=== PATIENT | female | born 1990 | race Caucasian/White ===

== ENCOUNTER 2017-04-15 06:51 | Inpatient (IN) | payer BC ==
[2017-04-14 10:19] LABS: ASCORBIC ACID (UR NOT ORDER) NEG (NEG); BILIRUBIN, URINE NEGATIVE (NEG); KETONE, URINE NEGATIVE (NEG); LEUKOCYTE ESTERASE(NOT OR MOD (NEG); WBC (NOT ORDERED) (RFLEX) 73 (0-5)
--- NOTE | ~2017-04-15 | OP ---
Record Of Operation [facility] [address] [place]. [address] NAME: LINDY BRINK : 89 STATUS : REG [facility] [place] PAT#: [id number] AGE: 26 ADM/REG DATE : 04/15/17 MR#: [id number] REPORT SERV DATE: 04/15/17 DICTATED BY: AMY RUSHING DATE: 04/15/17 REPORT STATUS : Draft TRANSCRIBED BY: MODL DATE: 04/15/17 DATE OF PROCEDURE: 04/15/2017 TITLE OF OPERATIONS: Cystourethroscopy, right retrograde pyelogram, right ureteroscopy with laser lithotripsy, and basket stone extraction. PREOPERATIVE DIAGNOSES: 1. Right renal stones. 2. Recurrent urinary tract infections. POSTOPERATIVE DIAGNOSES: 1. Right renal stones. 2. Recurrent urinary tract infections. INDICATIONS: Ms Brink is a 26-year-old female with recurrent UTIs. 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 Given these findings, she is taken to the operating room for treatment of her stones to hopefully fix her recurrent UTI problem. ANESTHESIA: General. COMPLICATIONS: None. IMPLANTS: None. SPECIMEN: Stones for analysis. NARRATIVE: The patient was brought to the operating room, identified by a wristband. General anesthesia was induced, and Levaquin was given for preoperative antibiotics. She was placed in the dorsal lithotomy position, prepped and draped in sterile fashion. A cystoscope was placed into her urethra and into her bladder. The bladder was inspected. There were no tumors or other abnormalities. The right ureteral orifice was identified, and cannulated with a Sensor wire. 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 A wire was placed up into the lower pole moiety, and ureteroscope was placed over the wire into the kidney. The kidney was inspected. There were several small stones in the lower pole of the kidney. Using 200 micron holmium laser fiber and 100 watt laser, the stones were fragmented into innumerable submillimeter pieces. There was one piece that was about 2 mm in size. It was grasped in NGage basket and removed from the kidney. The kidney was systematically inspected with upper and lower poles. There were no further stones. The ureter was not traumatized. Decision was made not to leave a stent. The patient was awoken from anesthesia, and transferred to the recovery room in stable condition. There were no complications. Record Of Operation [address] [place]. [address] NAME: LINDY BRINK : 89 STATUS : REG [facility] [place] PAT#: [id number] AGE: 26 ADM/REG DATE : 04/15/17 MR#: [id number] REPORT SERV DATE: 04/15/17 DICTATED BY: AMY RUSHING DATE: 04/15/17 REPORT STATUS : Draft TRANSCRIBED BY: CANDY DATE: 04/15/17 MIRNA/CANDY y Rushing MD / [id number] CC: MD Dorene Saab M.D.
[~2017-04-15 06:51] MED LIST: BIOTIN5 MG PO; COLON CLEANSE; GARCINIA CAMBOGIA; MULTI-VIT HP; TOPAMAX25 PO
[2017-04-15 13:46] LABS: BASOPHILS 0 %; EOSINOPHILS 0 %; HEMATOCRIT 39.1 % (36.0-48.0); HEMOGLOBIN 13.5 g/dL (12.0-16.0); IMMATURE GRANULOCYTES 0.3 %; IMMATURE GRANULOCYTES ABSOLUTE 0.02 10/3/uL (0.0-0.11); LYMPHOCYTES 2.4 %; LYMPHOCYTES ABSOLUTE 0.17 10/3/uL (0.67-4.30); MEAN CORPUS HGB CONC 34.5 g/dL (32.0-36.0); MEAN CORPUSCULAR HEMOGLOB 31.6 pg (26.0-34.0); MEAN CORPUSCULAR VOLUME 91.6 fL (80-100); MEAN PLATELET VOLUME 9.3 fL (9.2-13.0); MONOCYTES 1.3 %; MONOCYTES ABSOLUTE 0.09 10/3/uL (0.21-1.20); NEUTROPHILS ABSOLUTE 6.79 10/3/uL (2.02-8.40); RBC DISTRIBUTION WIDTH 13.2 % (12.0-16.0); RED CELL COUNT 4.27 10/6/uL (4.0-5.6); WHITE BLOOD CELLS 7.1 10/3/uL (4.5-10.5)
[2017-04-15 13:48] LABS: MANUAL DIFF NO %; PLATELET COUNT 140 10/3/uL (150-400)
[2017-04-15 13:58] LABS: BUN (BLOOD UREA NITROGEN) 10 MG/DL (6-23); CALCIUM, SERUM 8.5 MG/DL (8.5-10.4); CHLORIDE, SERUM 109 MMOL/L (96-112); CO2 (CARBON DIOXIDE) 28 MMOL/L (24-34); CREATININE 0.84 MG/DL (0.55-1.02); GFR AFRICAN AMERICAN 111 ML/MIN (>=60); GFR NON AFRICAN AMERICAN 96 ML/MIN (>=60); GLUCOSE, SERUM 101 MG/DL (60-99); POTASSIUM, SERUM 3.8 MMOL/L (3.5-5.3); SODIUM, SERUM 143 MMOL/L (135-148)
[2017-04-16 05:44] LABS: BASOPHILS 0.1 %; BASOPHILS ABSOLUTE 0.02 10/3/uL (0.0-0.16); EOSINOPHILS 0 %; HEMATOCRIT 36.4 % (36.0-48.0); HEMOGLOBIN 12.6 g/dL (12.0-16.0); IMMATURE GRANULOCYTES 0.6 %; LYMPHOCYTES 3.1 %; LYMPHOCYTES ABSOLUTE 0.54 10/3/uL (0.67-4.30); MEAN CORPUS HGB CONC 34.6 g/dL (32.0-36.0); MEAN CORPUSCULAR HEMOGLOB 31.8 pg (26.0-34.0); MEAN CORPUSCULAR VOLUME 91.9 fL (80-100); MEAN PLATELET VOLUME 9.5 fL (9.2-13.0); MONOCYTES 3.8 %; MONOCYTES ABSOLUTE 0.67 10/3/uL (0.21-1.20); NEUTROPHILS 92.4 %; NEUTROPHILS ABSOLUTE 16.08 10/3/uL (2.02-8.40); PLATELET COUNT 147 10/3/uL (150-400); RBC DISTRIBUTION WIDTH 13.3 % (12.0-16.0); RED CELL COUNT 3.96 10/6/uL (4.0-5.6)
[2017-04-16 05:45] LABS: MANUAL DIFF NO %; WHITE BLOOD CELLS 17.4 10/3/uL (4.5-10.5)
[2017-04-16 05:53] LABS: BUN (BLOOD UREA NITROGEN) 10 MG/DL (6-23); CHLORIDE, SERUM 106 MMOL/L (96-112); CO2 (CARBON DIOXIDE) 25 MMOL/L (24-34); CREATININE 0.76 MG/DL (0.55-1.02); GFR AFRICAN AMERICAN 125 ML/MIN (>=60); GFR NON AFRICAN AMERICAN 108 ML/MIN (>=60); POTASSIUM, SERUM 3.7 MMOL/L (3.5-5.3); SODIUM, SERUM 138 MMOL/L (135-148)
[2017-04-16 05:57] LABS: GLUCOSE, SERUM 123 MG/DL (60-99)
[2017-04-16 11:51] LABS: BASOPHILS 0.1 %; BASOPHILS ABSOLUTE 0.01 10/3/uL (0.0-0.16); EOSINOPHILS 0.1 %; EOSINOPHILS ABSOLUTE 0.01 10/3/uL (0.0-0.53); HEMATOCRIT 36.9 % (36.0-48.0); HEMOGLOBIN 12.2 g/dL (12.0-16.0); IMMATURE GRANULOCYTES 0.3 %; IMMATURE GRANULOCYTES ABSOLUTE 0.04 10/3/uL (0.0-0.11); LYMPHOCYTES 4.3 %; LYMPHOCYTES ABSOLUTE 0.59 10/3/uL (0.67-4.30); MANUAL DIFF NO %; MEAN CORPUS HGB CONC 33.1 g/dL (32.0-36.0); MEAN CORPUSCULAR HEMOGLOB 31.1 pg (26.0-34.0); MEAN CORPUSCULAR VOLUME 94.1 fL (80-100); MEAN PLATELET VOLUME 9.4 fL (9.2-13.0); MONOCYTES 5.2 %; MONOCYTES ABSOLUTE 0.71 10/3/uL (0.21-1.20); NEUTROPHILS ABSOLUTE 12.27 10/3/uL (2.02-8.40); PLATELET COUNT 112 10/3/uL (150-400); RBC DISTRIBUTION WIDTH 13.6 % (12.0-16.0); RED CELL COUNT 3.92 10/6/uL (4.0-5.6); WHITE BLOOD CELLS 13.6 10/3/uL (4.5-10.5)
[2017-04-17 05:46] LABS: BASOPHILS 0.1 %; BASOPHILS ABSOLUTE 0.01 10/3/uL (0.0-0.16); EOSINOPHILS 0.4 %; EOSINOPHILS ABSOLUTE 0.04 10/3/uL (0.0-0.53); HEMATOCRIT 34.3 % (36.0-48.0); HEMOGLOBIN 11.8 g/dL (12.0-16.0); IMMATURE GRANULOCYTES 0.2 %; IMMATURE GRANULOCYTES ABSOLUTE 0.02 10/3/uL (0.0-0.11); LYMPHOCYTES 11.6 %; LYMPHOCYTES ABSOLUTE 1.12 10/3/uL (0.67-4.30); MEAN CORPUS HGB CONC 34.4 g/dL (32.0-36.0); MEAN CORPUSCULAR HEMOGLOB 31.6 pg (26.0-34.0); MEAN CORPUSCULAR VOLUME 91.7 fL (80-100); MEAN PLATELET VOLUME 9.9 fL (9.2-13.0); MONOCYTES 7.4 %; MONOCYTES ABSOLUTE 0.71 10/3/uL (0.21-1.20); NEUTROPHILS 80.3 %; NEUTROPHILS ABSOLUTE 7.74 10/3/uL (2.02-8.40); PLATELET COUNT 134 10/3/uL (150-400); RBC DISTRIBUTION WIDTH 13.3 % (12.0-16.0); RED CELL COUNT 3.74 10/6/uL (4.0-5.6); WHITE BLOOD CELLS 9.6 10/3/uL (4.5-10.5)
[2017-04-17 05:52] LABS: MANUAL DIFF NO %
[2017-04-17 06:07] LABS: BUN (BLOOD UREA NITROGEN) 8 MG/DL (6-23); CALCIUM, SERUM 8.3 MG/DL (8.5-10.4); CHLORIDE, SERUM 110 MMOL/L (96-112); CO2 (CARBON DIOXIDE) 25 MMOL/L (24-34); CREATININE 0.67 MG/DL (0.55-1.02); GFR AFRICAN AMERICAN 141 ML/MIN (>=60); GFR NON AFRICAN AMERICAN 121 ML/MIN (>=60); GLUCOSE, SERUM 104 MG/DL (60-99); SODIUM, SERUM 140 MMOL/L (135-148)
[2017-04-17 06:09] LABS: POTASSIUM, SERUM 4.3 MMOL/L (3.5-5.3)
[2017-04-17] MEDS ORDERED: CIP5 PO (13:27)
[2017-04-17] MEDS ORDERED: PCET PO (13:27)
[2017-04-18 22:38] LABS: SOURCE OF STONE Kidney (()); STONE COMPOSITION TWO DNR (())
== END 2017-04-17 14:31 | disposition home or self-care (01) | DRG 670 ==
LOC: SDC 06:51 → MIC 16:08 → IMCU 04-16 00:41 → 5SO 04-16 10:53
PROVIDERS: Urology
PROC: 0TC68ZZ Extirpation of Matter from Right Ureter, Via Natural or Artificial Opening Endoscopic (ICD-10-PCS; 2017-04-15)
PROC: 0TF68ZZ Fragmentation in Right Ureter, Via Natural or Artificial Opening Endoscopic (ICD-10-PCS; 2017-04-15)
PROC: BT1D1ZZ Fluoroscopy of Right Kidney, Ureter and Bladder using Low Osmolar Contrast (ICD-10-PCS; principal; 2017-04-15 08:30)
DX: N20.0 Calculus of kidney (principal)
CPT/HCPCS: 74176; 74420; 80048; 81001; 82365; 84703; 85025; 87040; 87077; 87086; 87186; 87641; A9270-GY; C1758; J0692; J1170; J1885; J2250; J2270; J2405; J2550; J2710; J3010; Q9967